=== PATIENT | male | born 1930 | race African-American/Black ===

== ENCOUNTER 2016-10-20 19:04 | Emergency (ER) | payer OTHER, MEDICARE ==
[~2016-10-20] VITALS: Ht 170.2 cm; Wt 93.0 kg
[2016-10-20] MEDS ORDERED: ASPIR 8181 MG PO (19:13)
[2016-10-20] MEDS ORDERED: VITAMIN D1000 UNI1 PO (19:14)
[2016-10-20] MEDS ORDERED: METFORMIN HCL500 MG PO (19:15)
[2016-10-20] MEDS ORDERED: ZOCOR20 MG PO (19:15)
[2016-10-20] MEDS ORDERED: VITAMIN E400 UNIT PO (19:15)
[2016-10-20] MEDS ORDERED: LISINOPRIL10 MG PO (19:15)
[2016-10-20] MEDS ORDERED: FOLIC ACID1 MG PO (19:15)
[2016-10-20] MEDS ORDERED: METHOTREXATE 22.5 MG PO (19:16)
[2016-10-20] MEDS ORDERED: UNICOMPLEX M TA1 TA1 PO (19:17)
[2016-10-20] MEDS ORDERED: LANTUS100 UNIT/M SQ (19:17)
[2016-10-20 19:42] LABS: HEMATOCRIT 36.1 % (42.0-52.0); HEMOGLOBIN 12.3 gm/dL (14.0-18.0); MCH 30.7 pg (26.0-34.0); MCHC 34.1 % (28.0-37.0); MCV 90.2 fL (80.0-100.0); RBC 4.01 mil/uL (4.50-6.00); RDW 14.7 % (10.5-14.5); WBC 9.8 thou/uL (4.0-11.0)
[2016-10-20 20:01] VITALS: BP 104/68
[2016-11-29] MEDS ORDERED: NORCO 5-325 TA1 EACH PO (03:32)
== END 2016-10-20 20:01 | disposition home or self-care (01) ==
LOC: ER 19:04
PROVIDERS: Emergency Medicine
DX: K62.5 Hemorrhage of anus and rectum (principal); I10 Essential (primary) hypertension; L40.9 Psoriasis, unspecified; E78.00 Pure hypercholesterolemia, unspecified; Z88.0 Allergy status to penicillin

== ENCOUNTER 2017-03-15 01:22 | Emergency (ER) | payer OTHER, MEDICARE ==
[~2017-03-15] VITALS: Ht 170.2 cm; Wt 90.7 kg
[~2017-03-15 01:22] MED LIST: ASPIR 8181 MG PO; FOLIC ACID1 MG PO; LANTUS100 UNIT/M SQ; LISINOPRIL10 MG PO; METFORMIN HCL500 MG PO; METHOTREXATE 22.5 MG PO; NORCO 5-325 TA1 EACH PO; UNICOMPLEX M TA1 TA1 PO; VITAMIN D1000 UNI1 PO; VITAMIN E400 UNIT PO; ZOCOR20 MG PO
[2017-03-15] MEDS ORDERED: ULTRAM 50MG TAB50 MG PO (02:25)
[2017-03-15 02:40] VITALS: BP 154/89
== END 2017-03-15 02:42 | disposition home or self-care (01) ==
LOC: ER 01:22
DX: S62.634A Displaced fracture of distal phalanx of right ring finger, initial encounter for closed fracture (principal); I10 Essential (primary) hypertension; E78.00 Pure hypercholesterolemia, unspecified; F10.99 Alcohol use, unspecified with unspecified alcohol-induced disorder; Z88.0 Allergy status to penicillin; Z88.8 Allergy status to other drugs, medicaments and biological substances; W01.0XXA Fall on same level from slipping, tripping and stumbling without subsequent striking against object, initial encounter; Y93.89 Activity, other specified; Y92.89 Other specified places as the place of occurrence of the external cause; Y99.8 Other external cause status